=== PATIENT | female | born 1955 | race Caucasian/White ===

== ENCOUNTER 2022-11-26 07:29 | Inpatient (IN) ==
--- NOTE | 2022-11-20 14:23 | Anesthesiology Consultation ---
Date of Service November 20, 2022 Assessment & Plan (1) Encounter for pre-operative examination: Plan - awaiting confirmed EKG. - check CBC with diff STAT am DOS given chemotherapy. - COVID screening: Per environmental protection forester on 11/20/2022: Travel screen negative, no known COVID-19 positive contacts or current COVID-19 related symptoms in past 2 weeks. To surgeon's discretion if preop COVID testing is needed. Chart Review Chart Review: Pending: Refer to Additional Notes / Consult section (confirmed EKG) and Patient NOT seen in Pre Admission Testing History Surgery Operation Date: 11/26/22 10:05 Proposed Procedures p Laparoscopic Assisted Colostomy - Jose Alexis MD, FACS Height/Weight Height: 5 ft 7 in Weight: 59.421 kg Allergies Allergy/AdvReac Type Severity Reaction Status Date / Time Penicillins Allergy Intermediate Rash Verified 11/20/22 13:34 Medications Home Medications Medication Instructions Recorded Confirmed Last Taken carvedilol 3.125 mg tablet (Coreg) 3.125 mg PO BID 05/14/21 11/20/22 05/22/21 08:00 lorazepam 0.5 mg tablet (Ativan) 0.5 mg PO BID PRN Anxiety 05/14/21 11/20/22 05/21/21 22:00 tramadol 50 mg tablet (Ultram) 50 mg PO Q4H PRN pain #7 tabs 05/22/21 11/20/22 Unknown gabapentin 100 mg capsule 200 mg PO TID 11/17/22 11/20/22 Unknown (Neurontin) prochlorperazine maleate 10 mg 10 mg PO Q6H PRN Nausea 11/17/22 11/20/22 Unknown tablet (Compazine) Past Medical History Medical History Anal cancer w/ mets liver, bone, lung per pt. dx'd 2020. hx chemo. Anxiety Depression Hypertension Past Family History Family History Mother Diabetes Hypertension Other No family history of adverse response to anesthesia Past Surgical History Surgical History H/O colonoscopy H/O: hysterectomy partial History of bunionectomy right History of surgery removal 2 ribs History of tooth extraction Port-A-Cath in place (05/22/21) Insertion of Access Port to left subclavian with Fluoroscopy (Left) - Job Clifton DO. pt unaware of port type at this time. Social History Smoking Status: Current every day smoker tobacco type: cigarettes Smoking cigarettes per day: 3-4 Do You Dip or Chew Tobacco: No Hx Alcohol Use: No Hx Substance Use: No substance use type: does not use Lab Results Anesthesia Preop Results Results Anesthesia Widget: WBC 7.05 K/ul (4.8-10.8) 11/20/22 Hgb 12.9 g/dl (12.0-16.0) 11/20/22 Hct 37.4 % (37.0-47.0) 11/20/22 Plt 121 K/uL (130-400) L 11/20/22 Na 134 mmol/L (136-145) L 11/20/22 K 4.3 mmol/L (3.5-5.1) 11/20/22 Cl 97 mmol/L (98-107) L 11/20/22 CO2 29 mmol/L (21-32) 11/20/22 BUN 16 mg/dl (6-23) 11/20/22 Creat 1.16 mg/dl (0.6-1.2) 11/20/22 Glucose Level 94 mg/dl (70-99(Fasting)) 11/20/22 Urine Color Dark Yellow 09/23/22 Urine Appearance Clear (Clear) 09/23/22 Urine pH 5.5 (4.5-7.5) 09/23/22 Urine Specific [place] 1.022 (1.000-1.030) 09/23/22 Urine Protein Trace (Negative) H 09/23/22 Urine Glucose (UA) Negative (Negative) 09/23/22 Urine Ketones Negative (Negative) 09/23/22 Urine Blood 2+ (Negative) H 09/23/22 Urine Nitrite Negative (Negative) 09/23/22 Urine Bilirubin Negative (Negative) 09/23/22 Urine Urobilinogen Negative (Negative) 09/23/22 Urine Leukocyte Esterase Negative (Negative) 09/23/22 Urine WBC (Auto) 1-5 /hpf (0-5) 09/23/22 Urine RBC (Auto) 10-30 /hpf (0-4) H 09/23/22 Urine Hyaline Casts (Auto) 1-5 /lpf (0-5) 09/23/22 Urine Epithelial Cells (Auto) 5-10 /lpf (0-5) H 09/23/22 Urine Bacteria (Auto) Negative (Negative) 09/23/22 Testing Other Testing Chest CT 10/06/22 1. Interval increase in size and number of the multiple pulmonary nodules and hepatic lesions consistent with progressive metastatic disease. 2. Interval development of right hilar lymphadenopathy. Abdomen pelvis CT 10/06/22 Interval significant worsening of primary anal cancer and metastatic disease. The anal mass is enlarged and heterogeneous with perirectal soft tissue nodules likely representing abdelrahman metastases. 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 Hepatic masses have significantly increased in size and number. Osteoblastic metastatic lesions are similar to prior exam.
[~2022-11-26 07:29] MED LIST: ACETAMINOPHEN 1000 MG/100 ML IV IV ONE; LR 15ML/HR IV SCH
[2022-11-26] MEDS ORDERED: DEXAMETHASONE SOD INJ 4 MG/ML VIAL ONE (08:36)
[2022-11-26] MEDS ORDERED: NEOSTIGMINE METHYLSULFATE 1 MG/ML 10ML VIAL ONE (08:36)
[2022-11-26] MEDS ORDERED: ONDANSETRON INJ 2 MG/ML 2 ML VIAL ONE (08:36)
[2022-11-26] MEDS ORDERED: PROPOFOL IV EMULSION 10 MG/ML 20 ML VIAL IV ONE (08:36)
[2022-11-26] MEDS ORDERED: GLYCOPYRROLATE 0.2 MG/ML VIAL ONE (08:36)
[2022-11-26] MEDS ORDERED: fentaNYL citrate 100 MCG/2 ML VIAL ONE ×2 (08:37)
[2022-11-26] MEDS ORDERED: MIDAZOLAM HCL 1 MG/ML 2ML VIAL ONE (08:37)
[2022-11-26 08:52] LABS: Basophils # (auto) 0.04 K/uL (0-0.2); Basophils % (auto) 0.4 %; Eosinophils # (auto) 0.01 K/uL (0-0.50); Eosinophils % (auto) 0.1 %; Hemoglobin 13.4 g/dl (12.0-16.0); Immature Granulocytes # (auto) 0.05 K/uL (0.01-0.20); Immature Granulocytes % (auto) 0.5 %; Lymphocytes # (auto) 0.61 K/uL (1.2-3.4); Lymphocytes % (auto) 6.7 %; Mean Corpuscular Hemoglobin 36.8 pg (25.0-34.0); Mean Corpuscular Hgb Conc 34.4 g/dL (32.0-36.0); Mean Corpuscular Volume 107.1 fL (80.0-100.0); Monocytes # (auto) 0.84 K/uL (0.11-0.59); Monocytes % (auto) 9.2 %; Neutrophils # (auto) 7.61 K/uL (1.40-6.50); Neutrophils % (auto) 83.1 %; Platelet Count 129 K/uL (130-400); RDW Coefficient of Variation 15.6 % (11.5-14.5); RDW Standard Deviation 62.2 fL (36.4-46.3); Red Blood Count 3.64 M/uL (4.20-5.40); White Blood Count 9.16 K/ul (4.8-10.8)
[2022-11-26] MEDS ORDERED: fentaNYL citrate 100 MCG/2 ML VIAL IV PRN (08:54)
[2022-11-26] MEDS ORDERED: HYDROmorphone INJ 2 MG/ML SYR/VIAL IV PRN (08:54)
[2022-11-26] MEDS ORDERED: ePHEDrine sulfate 50 MG/ML AMP IV PRN (08:54)
[2022-11-26] MEDS ORDERED: ATROPINE SULFATE 0.1 MG/ML 10ML SYR IV PRN (08:54)
[2022-11-26] MEDS ORDERED: ONDANSETRON INJ 2 MG/ML 2 ML VIAL IV PRN (08:54)
--- NOTE | 2022-11-26 08:54 | Anesthesiology Consultation ---
Date of Service November 26, 2022 Assessment & Plan ASA ASA4 Proposed Anesthesia Anesthesia Type: General Risk / Benefits Reviewed With: PT / POA / Parent / Guardian, Accepts Plan and Informed Consent Obtained History Surgery Operation Date: 11/26/22 09:45 Proposed Procedures p Laparoscopic Assisted Colostomy - Jose Alexis MD, FACS Height/Weight Height: 5 ft 6 in Weight: 58 kg Allergies Allergy/AdvReac Type Severity Reaction Status Date / Time Penicillins Allergy Intermediate Rash Verified 11/26/22 08:31 Medications Home Medications Medication Instructions Recorded Confirmed Last Taken carvedilol 3.125 mg tablet (Coreg) 3.125 mg PO BID 05/14/21 11/26/22 11/26/22 07:15 lorazepam 0.5 mg tablet (Ativan) 0.5 mg PO BID PRN Anxiety 05/14/21 11/26/22 05/21/21 22:00 tramadol 50 mg tablet (Ultram) 50 mg PO Q4H PRN pain #7 tabs 05/22/21 11/26/22 11/26/22 04:00 gabapentin 100 mg capsule 200 mg PO TID 11/17/22 11/26/22 11/26/22 07:15 (Neurontin) prochlorperazine maleate 10 mg 10 mg PO Q6H PRN Nausea 11/17/22 11/26/22 Unknown tablet (Compazine) NPO Date Last Intake of Fluids: 11/23/22 Time Last Intake of Fluids: 22:00 Date Last Intake of Solids: 11/25/22 Time Last Intake of Solids: 23:00 Past Medical History Medical History Anal cancer w/ mets liver, bone, lung per pt. dx'd 2020. hx chemo. Anxiety Depression Hypertension Exercise / Class Metabolic Activity II 4-5 Yardwork/Stairs/Walk up hill Past Family History Family History Mother Diabetes Hypertension Other No family history of adverse response to anesthesia Past Surgical History Surgical History H/O colonoscopy H/O: hysterectomy partial History of bunionectomy right History of surgery removal 2 ribs History of tooth extraction Port-A-Cath in place (05/22/21) Insertion of Access Port to left subclavian with Fluoroscopy (Left) - Job Clifton DO. pt unaware of port type at this time. Past Anesthesia History No Hx of Anesthesia Complications and No Family Hx of Anesthesia Complications History of PONV No Hx of PONV and No Hx of Motion Sickness Social History Smoking Status: Current every day smoker tobacco type: cigarettes Smoking cigarettes per day: 3-4 Do You Dip or Chew Tobacco: No Hx Alcohol Use: No Hx Substance Use: No substance use type: does not use Review of Systems denies fever/cough/ colds/ chest pain/ SOB/ LEDY denies LEDY Physical Exam Vital Signs Last Vital Signs Temp 36.2 C L 11/26/22 08:24 Pulse 94 H 11/26/22 08:24 Resp 18 11/26/22 08:24 BP 121/81 11/26/22 08:24 Pulse Ox 100 11/26/22 08:24 O2 Del Method Room Air 11/26/22 08:24 Constitutional no acute distress ENMT Mouth: + edentulous; no TMJ abnormality and no dentition abnormality Thyromental Distance: > or= 3.5 Finger Breadths Mallampati Class: II Neck neck extension not limited Respiratory normal respiratory effort; no respiratory distress Auscultation: lungs clear to auscultation bilaterally Cardiovascular Rate/Rhythm: regular rate and regular rhythm Neurologic moves all extremities Psychiatric Orientation: alert and oriented x 3 Testing Laboratory Results 11/26/22 08:[address] 10/06/22 1. Interval increase in size and number of the multiple pulmonary nodules and hepatic lesions consistent with progressive metastatic disease. 2. Interval development of right hilar lymphadenopathy. Abdomen pelvis CT 10/06/22 Interval significant worsening of primary anal cancer and metastatic disease. The anal mass is enlarged and heterogeneous with perirectal soft tissue nodules likely representing abdelrahman metastases. 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 Hepatic masses have significantly increased in size and number. Osteoblastic metastatic lesions are similar to prior exam.
[2022-11-26] MEDS ORDERED: BUPIVACAINE 0.5 % 5 MG/1 ML MPF 30ML VIAL ONE (09:32)
--- NOTE | 2022-11-26 09:34 | History & Physical Bridge Note ---
Date of Service November 26, 2022 History & Physical Bridge Note I have examined the patient, reviewed the History & Physical and in the interval since the performance of the History & Physical I have noted the following changes of clinical significance: no changes noted SO at bedside all question answered again stating they want end colostomy
[2022-11-26] MEDS ORDERED: LIDOCAINE 2% MPF LOCAL 5 ML VIAL INFIL ONE (10:11)
[2022-11-26] MEDS ORDERED: ROCURONIUM BROMIDE 10 MG/ML 5 ML VIAL IV ONE ×4 (10:11→10:58)
[2022-11-26] MEDS ORDERED: HYDROmorphone INJ 2 MG/ML SYR/VIAL ONE (10:24)
[2022-11-26] MEDS ORDERED: cefOXitin 2,000 MG in DEXTROSE 5% 50 ML IV STA (10:36)
[2022-11-26] MEDS ORDERED: SUGAMMADEX SODIUM 200 MG/2 ML VIAL IV ONE (10:59)
[2022-11-26] MEDS ORDERED: PHENYLEPHRINE 100MCG/ML 5ML SYR ONE (11:12)
--- NOTE | 2022-11-26 11:30 | Post Operative Brief Note ---
Immediate Post Op Note v1 Date of Surgery November 26, 2022 Pre & Post Diagnosis Operation Date: 11/26/22 09:45 Pre-Op Diagnosis: Colovaginal Fistula, Anal Carcinoma Post-Op Diagnosis: Colovaginal Fistula, Anal Carcinoma I identified the patient and participated in the time-out.: Yes Procedure Operation Date: 11/26/22 09:45 Actual Procedures p Laparoscopic Assisted End Colostomy(Not Applicable) - Jose Alexis MD, FACS Surgeon Jose Aleixs MD, FACS Family Law Mediator nick pena do Estimated Blood Loss 50 Findings Consistent with Post-Op Diagnosis Drains Zeke Drain and Mireles Catheter
[2022-11-26] MEDS ORDERED: LORazepam 0.5 MG TAB PO PRN (11:59)
[2022-11-26] MEDS ORDERED: ACETAMINOPHEN 1,000 MG/100 ML VIAL IV PRN (12:53)
--- NOTE | 2022-11-26 13:22 | Anesthesiology Progress Note ---
Date of Service November 26, 2022 Anesthesia Post Procedure Vital Signs Vital Signs: Temp Pulse Resp BP Pulse Ox O2 Del Method O2 Flow Rate 11/26/22 12:45 37.1 C 76 18 133/78 97 Nasal Cannula 2 11/26/22 12:25 36.9 C 76 16 132/78 99 Nasal Cannula 2 11/26/22 12:15 76 17 136/77 99 Oxymask 5 11/26/22 12:05 75 17 132/80 99 Oxymask 5 11/26/22 11:55 76 18 135/78 100 Oxymask 5 11/26/22 11:49 37.1 C 73 18 137/83 100 Oxymask 5 11/26/22 08:24 36.2 C L 94 H 18 121/81 100 Room Air Pain Intensity Bilateral Lower Abdomen: Pain Intensity: 6 Transfer of Care Handoff Completed per policy Notes Mental Status: alert / awake / arousable and participated in evaluation Patient Amnestic to Procedure: Yes Nausea / Vomiting: adequately controlled Pain: adequately controlled Airway Patency, RR, SpO2: stable & adequate BP & HR: stable & adequate Hydration State: stable & adequate Anesthetic Complications: no major complications apparent and Pt Satisfied with anesthetic care
[2022-11-26] MEDS: LACTATED RINGER'S 1,000 ML IV SCH (13:29)
[2022-11-26] MEDS: GABAPENTIN 100 MG CAP PO SCH ×2 (14:19→21:22)
[2022-11-26] MEDS: ONDANSETRON INJ 2 MG/ML 2 ML VIAL IV SCH ×3 (14:19→23:10)
--- NOTE | 2022-11-26 14:31 | Operative Report ---
PG Post Operative Report Pre & Post Diagnosis Operation Date: 11/26/22 09:45 Pre-Op Diagnosis: Colovaginal Fistula, Anal Carcinoma Post-Op Diagnosis: Colovaginal Fistula, Anal Carcinoma The patient was brought into the operating theater general endotracheal anesthesia Mireles catheter inserted the abdomen was prepped byline solution properly draped timeout was had the patient identified this point we made a small incision supraumbilically vertically deep to the subcutaneous tissue using 2-0 Vicryl stay sutures once we entered the abdomen and subcutaneous tissue and on direct visualization we placed a 5 mm trocar followed by CO2 the 0 Vicryl suture was used to stay sutures around the 5 mm camera was inserted at this point patient had significant carcinomatosis of the omentum she had a large liver did almost extend to the level umbilicus we can visualize the sigmoid colon by first placing a right lower quadrant 5 mm port with preemptive local analgesic then placed a 5 mm right upper quadrant port with preemptive local analgesic we freed some of the wall using electrocautery above the white line of [place] we could appreciate that the colon had significant amount of fecal material and soft in nature by using the grasper and gently tapping on it we mobilized sufficiently the descending colon and the sigmoid area that I thought that we could bring it up as a colostomy we then made a counterincision linearly just at the intermediate between the umbilical area and anterior superior iliac crest on the left the put the subcutaneous tissue went on into the fascia and intra- abdominally we were able to identify the sigmoid colon distally in the sending area able to elevated in the wound with a normal mobilizing more sufficiently and direct visualization we freed more of the lateral peritoneal attachments some bleeding was encountered and controlled with electrocautery then we made a small opening in the sigmoid colon having sufficient mobility that we used a 80 ETTA stapler to divide the sigmoid colon the distal aspect would then be left in the abdomen at the patient's request the proximal would be the end colostomy we mobilized the proximal sigmoid colon morbid the mesentery so we have no traction on the colostomy we divided the mesentery using 2-0 silk ligatures and the opening was more than what we normally do to externalize loop colostomy in the superior inferior aspect we closed the fascia with some interrupted Vicryl sutures to leave fairly snug around the opening into the abdomen I also placed on 3-0 chromic suture interrupted around the cirrhosis down to the fascial area of the opening and used a continuous running chromic suture about three quarters of the way around to attach the sigmoid colon to the subcutaneous tissue and fascia centimeters another piece from the 12:00 and 3 o'clock position to interrupt the circular closure. We then opened up the sigmoid colon removing the staple line the using 3-0 chromic suture was sutured circumferentially to the skin and subcutaneous tissue very viable. At the end the procedure was able to put a finger into the area and could palpate a significant amount of soft stool. The procedure was tolerated well by the patient estimated blood loss approximately 30 cc I identified the patient and participated in the time-out.: Yes Procedure Operation Date: 11/26/22 09:45 Actual Procedures p Laparoscopic Assisted End Colostomy(Not Applicable) - Jose Alexis MD, FACS Surgeon Jose Alexis MD, FACS Plastics Scientist nick pena do Estimated Blood Loss 50 Findings Consistent with Post-Op Diagnosis Specimens None Description of Procedure merda I attest to the content of the Intraoperative Record and any orders documented therein. Any exceptions are noted below.
[2022-11-26] MEDS: carvediloL 3.125 MG TAB PO SCH (21:22)
[2022-11-26] MEDS: HEPARIN SOD 5,000 UNIT/0.5 ML VIAL SQ SCH (21:23)
[2022-11-27] MEDS: HYDROmorphone INJ 1 MG/ML SYRINGE IV PRN ×2 (02:47→13:10)
[2022-11-27] MEDS: LACTATED RINGER'S 1,000 ML IV SCH ×3 (05:47→23:15)
[2022-11-27] MEDS: ONDANSETRON INJ 2 MG/ML 2 ML VIAL IV SCH ×4 (05:49→23:11)
[2022-11-27] MEDS: carvediloL 3.125 MG TAB PO SCH ×2 (08:08→20:52)
[2022-11-27] MEDS: GABAPENTIN 100 MG CAP PO SCH ×3 (08:08→20:51)
[2022-11-27] MEDS: HEPARIN SOD 5,000 UNIT/0.5 ML VIAL SQ SCH ×2 (08:08→20:52)
--- NOTE | 2022-11-27 08:31 | Surgery Progress Note ---
Date of Service November 27, 2022 Assessment & Plan (1) Colovaginal fistula: Plan: Operative findings were discussed with the patient Discussed with her that the gas that she may have in the upper abdomen may be related to the laparoscopy At this point we will increase her diet if she is hungry we will increase her fluids since she is a bit dry and DC the Mireles Did explain to her that another surgeon will be following over the weekend and most likely should be here till Wednesday Plan We will DC Mireles Increase to regular diet Increase activity Admission and Anticipated Discharge Date Admission Date: November 26, 2022 Subjective No real issues overnight she would like to have something to eat Denies any nausea Stating she has some pain in the upper abdomen feels like gas pain Physical Exam Physical Exam: Alert coherent laying comfortably in bed in no acute distress Oropharyngeal area dry The abdomen is soft no tenderness the colostomy no output slight dark likely combination of some ecchymosis and some decreased blood flow Results & Data ([facility]) Vital Signs (Past 12 Hours) Vital Signs Temp Pulse Pulse Resp BP Pulse Ox O2 Del Method 11/27/22 07:58 36.4 C L 79 16 110/60 95 Room Air 11/27/22 03:58 36.6 C 76 16 119/71 97 Room Air 11/26/22 23:39 36.6 C 80 16 100/67 96 Room Air
[2022-11-27] MEDS: oxyCODONE/ACETAMINOPHEN 5mg/325mg TAB PO PRN (18:13)
[2022-11-28] MEDS: ONDANSETRON INJ 2 MG/ML 2 ML VIAL IV SCH ×4 (05:35→23:40)
[2022-11-28] MEDS: oxyCODONE/ACETAMINOPHEN 5mg/325mg TAB PO PRN ×4 (05:58→21:15)
[2022-11-28] MEDS: LACTATED RINGER'S 1,000 ML IV SCH ×2 (07:12→18:19)
[2022-11-28] MEDS: carvediloL 3.125 MG TAB PO SCH ×2 (08:29→21:14)
[2022-11-28] MEDS: GABAPENTIN 100 MG CAP PO SCH ×3 (08:29→21:14)
[2022-11-28] MEDS: HEPARIN SOD 5,000 UNIT/0.5 ML VIAL SQ SCH ×2 (08:30→21:14)
--- NOTE | 2022-11-28 09:49 | Surgery Progress Note ---
Date of Service November 28, 2022 Assessment & Plan (1) Anal cancer: Plan: decrease IVF ambulate con't diet await bowel function Admission and Anticipated Discharge Date Admission Date: November 26, 2022 Subjective pain controlled no real ostomy output yet Review of Systems Constitutional: no fever and no chills Respiratory: no dyspnea Cardiovascular: no chest pain Gastrointestinal: + abdominal pain and + change in bowel habits; no nausea and no vomiting Genitourinary: no dysuria Neurologic: no localized weakness and no generalized weakness Physical Exam Constitutional: + thin Neck: trachea midline Respiratory: normal respiratory effort, lungs clear to auscultation Cardiovascular: RRR, no murmur, no edema Gastrointestinal (Abdomen): Inspection/Auscultation: abdomen normal to inspection, normal bowel sounds and + abdominal surgical drain present; abdomen not distended Percussion/Palpation: + abdomen tender and abdomen soft; no guarding and abdomen not rigid ostomy a little purple but viable, no output yet Musculoskeletal: Head/Neck/Chest: normocephalic and head atraumatic Results & Data ([facility]) Vital Signs (Past 12 Hours) Vital Signs Temp Pulse Resp BP Pulse Ox O2 Del Method 11/28/22 08:33 36.6 C 76 18 114/67 99 Room Air
[2022-11-29] MEDS: LACTATED RINGER'S 1,000 ML IV SCH ×4 (04:21→11:48)
[2022-11-29] MEDS: oxyCODONE/ACETAMINOPHEN 5mg/325mg TAB PO PRN ×4 (05:02→19:13)
[2022-11-29] MEDS: ONDANSETRON INJ 2 MG/ML 2 ML VIAL IV SCH ×4 (05:03→23:50)
[2022-11-29] MEDS: carvediloL 3.125 MG TAB PO SCH ×2 (08:21→20:20)
[2022-11-29] MEDS: HEPARIN SOD 5,000 UNIT/0.5 ML VIAL SQ SCH ×2 (08:21→20:20)
[2022-11-29] MEDS: GABAPENTIN 100 MG CAP PO SCH ×3 (08:21→20:20)
--- NOTE | 2022-11-29 11:13 | Surgery Progress Note ---
Date of Service November 29, 2022 Assessment & Plan (1) Anal cancer: Plan: ambulate decrease IVF Admission and Anticipated Discharge Date Admission Date: November 26, 2022 Subjective feels good some thin fluid in ostomy taking po Review of Systems Constitutional: no fever and no chills Respiratory: no cough and no dyspnea Cardiovascular: no chest pain Gastrointestinal: + abdominal pain and + change in bowel habits; no nausea and no vomiting Neurologic: no generalized weakness Physical Exam Constitutional: WD/WN, vitals as above Respiratory: normal respiratory effort, lungs clear to auscultation Cardiovascular: RRR, no murmur, no edema Gastrointestinal (Abdomen): Inspection/Auscultation: abdomen normal to inspection and normal bowel sounds; abdomen not distended Percussion/Palpation: + abdomen tender and abdomen soft; no guarding and abdomen not rigid ostomy without significant output yet Results & Data ([facility]) Vital Signs (Past 12 Hours) Vital Signs Temp Resp BP Pulse Ox O2 Del Method 11/29/22 07:20 Room Air 11/29/22 07:58 36.3 C L 18 118/69 99 Room Air
[2022-11-30] MEDS: LACTATED RINGER'S 1,000 ML IV SCH (01:24)
[2022-11-30] MEDS: oxyCODONE/ACETAMINOPHEN 5mg/325mg TAB PO PRN ×4 (01:25→20:46)
[2022-11-30] MEDS: ONDANSETRON INJ 2 MG/ML 2 ML VIAL IV SCH ×3 (05:59→17:52)
--- NOTE | 2022-11-30 07:00 | Surgery Progress Note ---
Date of Service November 30, 2022 Assessment & Plan (1) Colovaginal fistula: Plan: 11/30/22 #4 POD status post end colostomy Would like to keep the patient here until the colostomy is functioning which I suspect will be's over the next 24 hours She rates question whether or not she needs radiation at this time she would like to wait until she feels stronger We will leave that decision up to her and radiological oncologist Plan DC IV fluids and IV analgesics Plan to keep the patient here until the colostomy is working well Admission and Anticipated Discharge Date Admission Date: November 26, 2022 Subjective Overall she feels well she is eating a regular diet she does not have the discomfort that she had preoperatively that is pressure in anal area with some burning sensation denies any nausea Physical Exam Physical Exam: Alert coherent resting comfortably no abdominal discomfort The abdomen is soft no tenderness trocar sites without any drainage julio intact Colostomy with serosanguineous drainage ostomy itself dusky but appears viable Zeke drainage with serous slightly dark output minimal Results & Data ([facility]) Vital Signs (Past 12 Hours) Vital Signs Temp Pulse Resp BP Pulse Ox O2 Del Method 11/29/22 19:18 Room Air 11/29/22 20:17 36.7 C 77 18 132/75 99 Room Air
[2022-11-30] MEDS: GABAPENTIN 100 MG CAP PO SCH ×3 (07:51→20:47)
[2022-11-30] MEDS: HEPARIN SOD 5,000 UNIT/0.5 ML VIAL SQ SCH ×2 (07:51→20:47)
[2022-11-30] MEDS: carvediloL 3.125 MG TAB PO SCH ×2 (07:52→20:46)
[2022-12-01] MEDS: ONDANSETRON INJ 2 MG/ML 2 ML VIAL IV SCH ×2 (00:21→05:54)
--- NOTE | 2022-12-01 06:40 | Surgery Progress Note ---
Date of Service December 01, 2022 Assessment & Plan (1) Colovaginal fistula: Plan: 12/01/22#5 using my index finger 4 x 4 gauze was able to remove the mucus slough over the colostomy site the colostomy itself once removed the slough appear to be viable beefy red underneath it I inserted a finger with some lubricant and was able to enter the canal without any difficulty into the abdomen there was some stool present at the tip of my finger grossly brown nonbloody We will reevaluate the patient later this morning I suspect colostomy will start working we will remove the Zeke drain can be discharged on Percocet Prior to coming to the hospital patient was just taken tramadol and hopefully she will go back to that in the few days Urine C&S taken at the time of the surgery straight Mireles was positive for some contaminant The patient is completely asymptomatic therefore we will not treat at On discharge the patient can drive she may shower no lifting anything heavier than 10 pounds and we will see her back in the office in approximately 1 week Decision to proceed with radiation treatment will leave up to the patient and Dr. Mills (radiation oncologist) 11/30/22 #4 POD status post end colostomy Would like to keep the patient here until the colostomy is functioning which I suspect will be's over the next 24 hours She rates question whether or not she needs radiation at this time she would like to wait until she feels stronger We will leave that decision up to her and radiological oncologist Plan DC IV fluids and IV analgesics Plan to keep the patient here until the colostomy is working well Admission and Anticipated Discharge Date Admission Date: November 26, 2022 Subjective Overall she feels much better than when she first came in She is tolerating a regular diet has been up and around Denies any urinary symptoms No abdominal discomfort Denies any drainage from the ostomy site she did pass a few specks of stool per rectum Physical Exam Physical Exam: Alert coherent laying in bed without any discomfort Sclera is minimally icteric Oropharyngeal area moist The abdomen soft minimal reaction on julio on the trocar sites Minimal output Removed the sleeve was able to see that the ostomy itself has some mucus layering appeared dusky The Zeke drain minimal serosanguineous drainage Results & Data ([facility]) Vital Signs (Past 12 Hours) Vital Signs Temp Pulse Resp BP Pulse Ox O2 Del Method 11/30/22 22:39 36.6 C 83 18 103/58 L 98 Room Air 11/30/22 20:06 36.8 C 89 18 109/63 98 Room Air
[2022-12-01 07:17] VITALS: BP 119/66; PULSE 88; TEMP 98.1; O2SAT 97
[2022-12-01] MEDS: HEPARIN SOD 5,000 UNIT/0.5 ML VIAL SQ SCH (08:09)
[2022-12-01] MEDS: GABAPENTIN 100 MG CAP PO SCH (08:09)
[2022-12-01] MEDS: carvediloL 3.125 MG TAB PO SCH (08:10)
[2022-12-01 08:16] LABS: Basophils # (auto) 0.03 K/uL (0-0.2); Basophils % (auto) 0.3 %; Eosinophils # (auto) 0.04 K/uL (0-0.50); Eosinophils % (auto) 0.5 %; Hematocrit (blood only) 32.9 % (37.0-47.0); Hemoglobin 11.2 g/dl (12.0-16.0); Immature Granulocytes # (auto) 0.05 K/uL (0.01-0.20); Immature Granulocytes % (auto) 0.6 %; Lymphocytes % (auto) 5.6 %; Mean Corpuscular Volume 108.6 fL (80.0-100.0); Mean Platelet Volume 11.4 fL (9.4-12.4); Monocytes # (auto) 0.94 K/uL (0.11-0.59); Monocytes % (auto) 10.6 %; Neutrophils # (auto) 7.31 K/uL (1.40-6.50); Neutrophils % (auto) 82.4 %; Platelet Count 117 K/uL (130-400); RDW Coefficient of Variation 15.6 % (11.5-14.5); Red Blood Count 3.03 M/uL (4.20-5.40); White Blood Count 8.87 K/ul (4.8-10.8)
[2022-12-01 08:27] LABS: Albumin Level 2.7 gm/dl (3.4-5.0); BUN Creatinine Ratio 15.5 (10-20); Bilirubin Direct 1.7 mg/dl (0-0.2); Calcium 8.3 mg/dl (8.5-10.1); Creatinine Clr Calc Pharmacy 59.5 ml/min; Est GFR (African American) 83.4 ml/min; Est GFR (Non-African American) 71.9 ml/min; Potassium 4.1 mmol/L (3.5-5.1); Total Protein 5.6 gm/dl (6.0-8.3)
[2022-12-01] MEDS: oxyCODONE/ACETAMINOPHEN 5mg/325mg TAB PO PRN (08:57)
--- NOTE | 2022-12-03 12:17 | Discharge Summary ---
Date of Service December 01, 2022 Principal Diagnosis s/p diverting colostomy colovaginal fistula anal cancer Discharge Exam awake/alert, no distress Respiratory normal respiratory effort Gastrointestinal (Abdomen) Inspection/Auscultation: + abdominal surgical incision (c/d/i ); abdomen not distended Percussion/Palpation: abdomen soft; abdomen nontender ostomy intact Discharge Data Allergies Allergy/AdvReac Type Severity Reaction Status Date / Time Penicillins Allergy Intermediate Rash Verified 11/26/22 08:31 Procedures Performed Operation Date: 11/26/22 09:45 Actual Procedures p Laparoscopic Assisted End Colostomy(Not Applicable) - Jose Alexis MD, FACS Hospital Course (1) Colovaginal fistula: This is a 67yF with a PMH of colovaginal fistula and colon cancer who presented to the [facility] [place] on 11/26/22 for a scheduled diverting colostomy with Dr. Alexis. The patient tolerated the procedure well, see op note for full details. She recovered in the PACU and was transferred to the med/surg unit in stable condition. Post operatively her diet was advanced as tolerated and pain remained well controlled on prn medications. The wound care nurse assisted the patient with ostomy care and education. Her ostomy was slightly dusky during her stay which was monitored. There was some mucousy slough noted overtop that was removed and noted to be beefy red and viable underneath. Ostomy was patent. On POD#5 the patient was stable for discharge to home. The silvia drain was removed. She was instructed to follow up in clinic with Dr. Alexis within 1 week. (2) Anal cancer: Total Time Total Time Spent Total Time Spent (In Minutes): 15 Discharge Plan Discharge Items Patient Disposition: Home - Home Health Services Reason For Visit: Colovaginal Fistula, Anal Carcinoma Discharge Diagnosis: laparoscopic assisted colostomy Activity: Per Instructions section Lifting: No more than 10 pounds Bathing Comment: may shower; no soaking in tubs/pools Exercise/Sports: Wait until after follow-up appointment Driving/Machine Use: no driving if taking any narcotics for pain Non-emergency contact: Surgeon Call non-emergency contact if: you have any medication questions, your symptoms worsen, your pain is not controlled, your pain is concerning for you, you have a fever, your temperature is above 101.5, your wound has increased redness, your wound has increased drainage and your wound pain has increased Follow-up/Referrals: Jose Alexis MD, FACS [Surgeon] - 12/09/22 1:30 pm (Please call to schedule follow up with Dr. Alexis within 1 week ) Irma Doherty MD [Primary Care Provider] - Diet: Low Fiber Addtl Attending Provider Instructions: Please care for your ostomy as you have been instructed prior to discharge from the hospital Use 2 1/4" wafer and pouch use 2" ostomy ring May cover site where your drain was until it is healed. Change dressing daily and as needed with dry 4x4 gauze and medipore tape. Pending Studies at Discharge: No Stand-Alone Forms: My [facility], Pain - Opioid Pain Management, Smoking Cessation Medications and DC Order Prescriptions: New oxycodone-acetaminophen [Percocet] 5-325 mg tablet 1 - 2 tab PO .q4-6h PRN (Reason: pain, for initial therapy, max 6 tabs per day) Qty: 12 0RF Continued prochlorperazine maleate [Compazine] 10 mg tablet 10 mg PO Q6H PRN (Reason: Nausea) gabapentin [Neurontin] 100 mg capsule 200 mg PO TID carvedilol [Coreg] 3.125 mg tablet 3.125 mg PO BID Rx Instructions: must administer with a meal/food lorazepam [Ativan] 0.5 mg tablet 0.5 mg PO BID PRN (Reason: Anxiety) Discontinued tramadol [Ultram] 50 mg tablet 50 mg PO Q4H PRN (Reason: pain) Qty: 7 0RF Discharge Orders: Discharge Order (Routine); Ordered 12/01/22 Ordered By: Maliha Nielson/Other Patient Handouts: Colostomy: Changing Your Pouch, Ostomy Care: Emptying Your Pouch, What Is a Colostomy? Admission Data Admit Date/Time: 11/26/22 11:50 Attending Provider: Jose Alexis Admit Provider: Jose Alexis Primary Care Provider: Irma Doherty Other Interventions: Discharge Summary Assessment (RN) Last Done: 12/01/22 09:13 Coding Level of Care Code 34495 IN/OBS DISCH 30 MIN/LESS Diagnoses Colovaginal fistula N82.4 Anal cancer C21.0
== END 2022-12-01 10:56 | disposition home health service (06) | DRG 330 ==
LOC: ASU 07:29 → 3E 11:50